=== PATIENT | male | born 1960 | race Caucasian/White ===

== ENCOUNTER 2020-08-02 23:03 | Emergency (ER) | payer BC ==
[~2020-08-02] VITALS: Ht 172.7 cm; Wt 78.4 kg
[~2020-08-02 23:03] MED LIST: OMNIPAQUE 350 MG/ML, 100ML BOTTLE ONE
[2020-08-02] MEDS ORDERED: ONDANSETRON ODT 4 MG PO ONE (23:30)
[2020-08-02] MEDS ORDERED: SODIUM CHLORIDE FLUSH 10ML SYR IVF ONE (23:30)
[2020-08-02] MEDS ORDERED: PROCHLORPERAZINE 5 MG/ML, 2ML IVPush ONE (23:30)
[2020-08-02] MEDS ORDERED: MECLIZINE CHEWABLE 25 MG TAB PO ONE (23:30)
[2020-08-02] MEDS ORDERED: SODIUM CHLORIDE 0.9% 1,000ML IVBOLUS ONE (23:30)
[2020-08-02] MEDS ORDERED: DIAZEPAM 5 MG/ML, 2ML IVPush ONE (23:30)
[2020-08-02] MEDS ORDERED: KETOROLAC 30 MG/1 ML IVPush ONE (23:30)
[2020-08-02] MEDS ORDERED: PROCHLORPERAZINE 5 MG/ML, 2ML ONE ×2 (23:35→23:53)
[2020-08-02] MEDS ORDERED: ONDANSETRON 2MG/ML, 2ML ONE (23:35)
[2020-08-02] MEDS ORDERED: KETOROLAC 30 MG/1 ML ONE (23:35)
[2020-08-02] MEDS ORDERED: DIAZEPAM 5 MG/ML, 2ML ONE (23:35)
[2020-08-02] MEDS ORDERED: MECLIZINE CHEWABLE 25 MG TAB ONE (23:36)
[2020-08-02 23:42] LABS: BASOPHILS % (AUTO) 1 % (0-1); EOSINOPHILS % (AUTO) 1 % (1-7); LYMPHOCYTES % (AUTO) 14 % (22-44); MEAN CORPUSCULAR HEMOGLOBIN 31.3 pg (27.5-34.5); MEAN CORPUSCULAR HGB CONC 34.1 g/dL (33.2-36.2); MEAN PLATELET VOLUME 9.3 fL (7.4-10.4); MONOCYTES % (AUTO) 6 % (2-9); NEUTROPHILS % (AUTO) 78 % (42-75); PLATELET COUNT 230 x10^3/uL (130-400); RED BLOOD COUNT 4.92 x10^6/uL (4.38-5.82); RED CELL DISTRIBUTION WIDTH 12.6 % (9.4-14.8)
[2020-08-02 23:43] LABS: MD NO
[2020-08-02 23:54] LABS: ALANINE AMINOTRANSFERASE 55 U/L (12-78); ANION GAP 6 mmol/L (5-15); CHLORIDE 109 mmol/L (98-107); CREATININE 0.83 mg/dL (0.7-1.3)
[2020-08-02 23:56] LABS: ALKALINE PHOSPHATASE 85 U/L (45-117); BILIRUBIN,TOTAL 0.5 mg/dL (0.2-1.0); TOTAL PROTEIN 7.1 g/dL (6.4-8.2)
[2020-08-02] MEDS ORDERED: MORPHINE SULFATE 4 MG/ML, 1ML ONE (23:59)
[2020-08-03] MEDS ORDERED: ONDANSETRON 2MG/ML, 2ML IVPush ONE
--- NOTE | 2020-08-03 00:04 | NUR ---
IV STARTED, LARGE BORE FOR CTA. MEDICATED PER ORDER. UPON DRAWING UP COMPAZINE WAS VERY HAZY APPEARING WHITISH COLOR. DID NOT ADMIN, WASTED AND JUSTINA UP NEW ONE. SIDE RAILS UP, CALL [place] IN REACH. POST MEDS, SUPP 02 NEEDED. PLACED ON 2L. VSS. AIDET PROVIDED.
[2020-08-03 00:59] VITALS: BP 123/79
--- NOTE | 2020-08-03 01:04 | NUR ---
BACK FROM CTA, VSS. PT VERY SLEEPY, SAYS DIFFICULT TO TELL IF FEELS BETTER BUT HE THINKS SO. HAS HAD NO N/V.
--- NOTE | 2020-08-03 01:26 | NUR ---
DR FERNANDEZ AT BEDSIDE FOR UPDATE.
--- NOTE | 2020-08-03 02:00 | NUR ---
DC HOME WITH , WC TO CAR. PT AND VERBALIZE UNDESTANDING OF INSTRUCT AND FU. TO RETURN TO ER IF WORSE OR CONERNS. VSS IV DC. 1000ML NS INFUSED.
== END 2020-08-03 02:17 | disposition home or self-care (01) ==
LOC: ED 23:33
DX: R42 Dizziness and giddiness (principal); R11.2 Nausea with vomiting, unspecified; R51.9 Headache, unspecified
CPT/HCPCS: 36415; 70450; 70496; 70498; 80053; 85025; 93005; 96374; 96375; 99285; J0780; J1885; J2405; J3360; J7030; Q9967